=== PATIENT | female | born 1990 | race Caucasian/White ===

== ENCOUNTER 2018-01-24 10:57 | Emergency (ER) | payer BC ==
--- NOTE | 2018-01-24 11:26 | ER Document Report ---
ED Syncope and Near Syncope - General Chief Complaint: Passed Out Prior to Arrival Stated Complaint: PASSED OUT Time Seen by Provider: 01/24/18 11:01 Notes: 27-year-old female patient emergency department after syncopal episode. Patient states that she is visiting her brother here from out of town. Was in a hotel room. Was using a curling iron and it pinched her finger. Had significant amount of pain and was squeezing it really hard when she felt lightheaded and then passed out. Fell backwards hitting her head on the carpet. Denies any major pain at this time. Has never had this happen before. Does not think she is . No history of heart problems. No significant family medical history of cardiac arrhythmias or sudden cardiac . Not on any blood thinners. Does not have a headache. No weakness. Feels back to normal but a little bit tearful at this time. Has no significant risk factors for pulmonary embolism. Not short of breath. Not a smoker. Not on control. No asymmetrical leg pain or swelling. No family history of PE or DVT TRAVEL OUTSIDE OF THE [place] IN LAST 30 DAYS: No - HPI Patient complains to provider of: Fainting Episode witnessed (by whom): Yes Single episoded occurred: Shortly prior to arrival Symptoms prior to episode: Other - Pain in her hand Position/Activity at time of episode: Standing Severity: Mild Pain Level: 0 Context: Collapsed. denies: , Recent immobilization, Recent seizures, Seizure activity observed Duration of LOC (min): Seconds to maybe a minute - Related Data Allergies/Adverse Reactions: No Known Allergies Allergy (Verified 01/24/18 10:58) Past Medical History - General Information source: Patient - Social History Smoking Status: Never Smoker Cigarette use (# per day): No Smoking Education Provided: No Frequency of alcohol use: Occasional Drug Abuse: None Lives with: Family Family History: Reviewed & Not Pertinent Patient has suicidal ideation: No Patient has homicidal ideation: No Renal/ Medical History: Denies: Hx Peritoneal Dialysis Review of Systems - Review of Systems Constitutional: denies: Fever, Malaise, Weakness EENT: denies: Blurred vision, Double vision, Ear pain, Throat pain, Difficulty swallowing, Throat swelling, Vertigo Cardiovascular: Syncope. denies: Chest pain, Palpitations, Heart racing, Dizziness, Lightheaded, Edema Respiratory: denies: Cough, Hurts to breathe, Hemoptysis, Short of breath, Sputum Gastrointestinal: denies: Abdominal pain, Diarrhea, Nausea, Vomiting Genitourinary: No symptoms reported. denies: Burning, Dysuria, Discharge Female Genitourinary: denies: , Vaginal discharge, Vaginal bleeding Musculoskeletal: denies: Back pain, Joint pain, Muscle pain, Leg swelling Hematologic/Lymphatic: denies: Anemia, Blood clots, Easy bleeding, Easy bruising Neurological/Psychological: denies: Weakness, Paralysis, Seizure, Headaches, Numbness Physical Exam - Vital signs Vitals: Temp Pulse Resp BP Pulse Ox 98.8 F 85 18 141/91 H 98 01/24/18 11:01 01/24/18 11:01 01/24/18 11:01 01/24/18 11:01 01/24/18 11:01 Interpretation: Normal - General General appearance: Appears well, Alert - HEENT Head: Normocephalic, Atraumatic Eyes: Normal Pupils: PERRL Fundascopic: Normal Nasal: Normal Mouth/Lips: Normal Mucous membranes: Normal Pharynx: Normal Neck: Normal, Supple. No: Meningismus, Neck mass - Respiratory Respiratory status: No respiratory distress Chest status: Nontender Breath sounds: Normal Chest palpation: Normal - Cardiovascular Rhythm: Regular Heart sounds: Normal auscultation Murmur: No - Abdominal Inspection: Normal Distension: No distension Bowel sounds: Normal Tenderness: Nontender Organomegaly: No organomegaly - Back Back: Normal, Nontender - Extremities General upper extremity: Normal inspection, Nontender, Normal color, Normal ROM , Normal temperature General lower extremity: Normal inspection, Nontender, Normal color, Normal ROM , Normal temperature, Normal weight bearing. No: Adrian's sign - Neurological Neuro grossly intact: Yes Cognition: Normal Orientation: AAOx4 [place] Coma Scale Eye Opening: Spontaneous [place] Coma Scale Verbal: Oriented [place] Coma Scale Motor: Obeys Commands [place] Coma Scale Total: 15 Speech: Normal Motor strength normal: LUE, RUE, LLE, RLE Sensory: Normal - Psychological Associated symptoms: Normal affect, Normal mood - Skin Skin Temperature: Warm Skin Moisture: Dry Skin Color: Normal Course - Re-evaluation Re-evalutation: 01/24/18 12:09 EKG unremarkable. Not . Urinalysis has some WBCs and bacteria but several squamous epithelial cells so unlikely this is something concerning. Will add a urine culture just to be safe. Accu-Chek blood sugar is 99. - Vital Signs Vital signs: Temp Pulse Resp BP Pulse Ox 98.8 F 85 18 141/91 H 98 01/24/18 11:01 01/24/18 11:01 01/24/18 11:01 01/24/18 11:01 01/24/18 11:01 - Laboratory Laboratory results interpreted by me: 01/24/18 11:30 Urine Ketones TRACE H Urine Blood SMALL H Ur Leukocyte Esterase SMALL H - EKG Interpretation by Me EKG shows normal: Sinus rhythm, [place], Intervals, QRS Complexes, ST-T Waves Discharge - Discharge Clinical Impression: Syncope, vasovagal Disposition: HOME, SELF-CARE Instructions: Vasovagal Symptoms ([facility]) Additional Instructions: Vasovagal Symptoms Your symptoms seem to be due to a fall in blood pressure, caused by the interaction of your nervous system with your circulatory system. This can result in abnormally slow pulse rate, faintness, abnormal sensations, low blood pressure, difficulty with vision, or fainting (syncope). Vasovagal symptoms may be brought on by emotional distress, pain, dehydration, bleeding, or medication effects. Often, no cause can be identified. Your exam has revealed no signs of a serious problem. Usually, no further tests are required. However, if further workup has been recommended it's important that you follow up as instructed. Should you feel lightheaded or "about to faint," you should sit or lie down as quickly as possible. The episode will usually pass. Recurring symptoms will require further evaluation to determine the cause. Call the physician if you develop severe prolonged dizziness, headache, chest pain, shortness of breath, or other new symptoms.
[2018-01-24 11:59] LABS: AMORPHOUS SEDIMENT,URINE TRACE /HPF; APPEARANCE,URINE CLOUDY; BILIRUBIN,URINE NEGATIVE (NEGATIVE); COLOR,URINE YELLOW; GLUCOSE, URINE NEGATIVE (NEGATIVE); KETONES,URINE TRACE mg/dL (NEGATIVE); LEUKOCYTE ESTERASE,URINE SMALL (NEGATIVE); NITRITE,URINE NEGATIVE (NEGATIVE); PROTEIN,URINE NEGATIVE (NEGATIVE); URINE SPECIFIC GRAVITY 1.017; UROBILINOGEN,URINE NEGATIVE mg/dL (<2.0)
[2018-01-24 12:23] VITALS: BP 132/80
--- NOTE | 2018-01-25 10:03 | EKG REPORT ---
SEVERITY:- BORDERLINE ECG - SINUS RHYTHM BORDERLINE T ABNORMALITIES, INFERIOR LEADS : Confirmed by: Jese Coffey 25-Jan-2018 10:02:41
== END 2018-01-24 12:17 | disposition home or self-care (01) ==
LOC: ER 10:57
DX: R55 Syncope and collapse (principal)
CPT/HCPCS: 81001; 81025; 82962; 87086; 93005; 93010; 99284